=== PATIENT | male | born 1950 | race African-American/Black ===

== ENCOUNTER 2022-10-17 23:37 | Emergency (ER) | payer BC, OTHER ==
[2022-10-18 00:03] VITALS: BP 164/97; PULSE 75; RESP 20; TEMP 97.6; BMI 27.4
[2022-10-18 00:50] LABS: BASO % 0.8 % (0-2.0); EOS % 1.3 % (0-4.5); HEMATOCRIT 41.9 % (35.4-49); HEMOGLOBIN 13.9 GM/dL (11.7-16.9); LYMPH % 23.4 % (8-40); MCH 27.3 pg (25.7-33.7); MCHC 33.1 g/dl (32.0-35.9); MEAN CELL VOLUME 82.4 fl (80-96); MEAN PLT VOLUME 8.7 fl (7.5-11.1); MONO % 8.6 % (3.8-10.2); NEUT % 65.9 % (42.8-82.8); PLATELET COUNT 228 10^3/uL (134-434); RBC 5.09 M/mm3 (4.00-5.60); RDW 13.7 % (11.9-15.9); VENOUS BASE EXCESS 1.2 mmol/L (-2-2); VENOUS O2 SATURATION 71.1 % (70-80); VENOUS PCO2 50.5 mmHg (38-52); VENOUS PH 7.356 (7.310-7.410); WHITE BLOOD COUNT 5.3 K/mm3 (4.0-10.0)
[2022-10-18 00:54] LABS: EPI CELLS 1 /uL (0-25.1); HYALINE CASTS 0 /uL (0-3.1); URINE APPEARANCE CLEAR; URINE BACTERIA 5 /uL (0-1359); URINE BILIRUBIN NEGATIVE (NEGATIVE); URINE COLOR YELLOW; URINE GLUCOSE (UA) 3+ (NEGATIVE); URINE KETONE NEGATIVE (NEGATIVE); URINE LEUK ESTERASE NEGATIVE (NEGATIVE); URINE NITRITE NEGATIVE (NEGATIVE); URINE PROTEIN NEGATIVE (NEGATIVE); URINE RBC 16 /uL (0-23.9); URINE UROBILINOGEN 0.2 mg/dL (0.2-1.0); URINE WBC 1 /uL (0-25.8)
[2022-10-18 01:33] LABS: ALBUMIN 4.2 g/dl (3.4-5.0); BLOOD UREA NITROGEN 19.4 mg/dL (7-18); CALCIUM 9.1 mg/dL (8.5-10.1); MAGNESIUM 2.1 mg/dL (1.8-2.4)
[2022-10-18 01:36] LABS: CREATININE 1.2 mg/dL (0.55-1.3)
[2022-10-18 01:38] LABS: BILIRUBIN,TOTAL 0.5 mg/dL (0.2-1); TOT PROT 7.6 g/dl (6.4-8.2)
[2022-10-18] MEDS ORDERED: INSULIN (NOVOLOG) ASPART 100 UNITS/ML 10ML VIAL SQ ONE (01:40)
[2022-10-18] MEDS ORDERED: SODIUM CHLORIDE 0.9% 500 ML INFUS.BAG IV ONE ×2 (01:41)
[2022-10-18] MEDS ORDERED: INSULIN (NOVOLOG) ASPART 100 UNITS/ML 10ML VIAL ONE (01:55)
== END 2022-10-18 03:10 | disposition home or self-care (01) ==
LOC: JER 23:37
PROC: 3E013VG Introduction of Insulin into Subcutaneous Tissue, Percutaneous Approach (ICD-10-PCS; principal; 2022-10-18)
DX: R35.89 Other polyuria (principal); R63.1 Polydipsia; E11.65 Type 2 diabetes mellitus with hyperglycemia
CPT/HCPCS: 36415; 80053; 81003; 82010; 82803; 82962; 83735; 85025; 87086; 93005; 93010; 99284-25